=== PATIENT | male | born 1990 | race Two or more races ===

== ENCOUNTER 2018-05-13 11:24 | Emergency (ER) | payer MEDICAID ==
[~2018-05-13] VITALS: Ht 170.2 cm; Wt 58.1 kg
[2018-05-13 11:36] VITALS: BP 112/53
--- NOTE | 2018-05-13 11:40 | NUR ---
PT BIB SELF C/O OF RASH ON THE BUTT, PT IS AOX4, NOT IN RESPIRATORY DISTRESS, V/S STABLE, KEPT RESTED AND COMFORTABLE, AWAITING ER MD FOR EVAL.
--- NOTE | 2018-05-13 11:54 | NUR ---
Patient discharged to home in stable condition. Written and verbal after care instructions given. Patient verbalizes understanding of instruction.
== END 2018-05-13 11:56 | disposition home or self-care (01) ==
LOC: ER 11:27
DX: L30.9 Dermatitis, unspecified (principal); K62.89 Other specified diseases of anus and rectum
CPT/HCPCS: 99282; A4606; Z7610